=== PATIENT | female | born 1990 | race Caucasian/White ===

== ENCOUNTER 2018-10-25 22:54 | Emergency (ER) | payer MEDICAID ==
[~2018-10-25] VITALS: Ht 154.9 cm; Wt 59.1 kg
[2018-10-25] MEDS ORDERED: LEVE250T55 PO (23:25)
[2018-10-25] MEDS ORDERED: IBUPROFEN 100 MG/5 ML SUSPENSION UDCUP PO ONE (23:30)
[2018-10-25] MEDS ORDERED: PredniSONE 5 MG/5 ML SOLUTION UDCUP PO ONE (23:30)
[2018-10-25 23:56] VITALS: BP 123/68
== END 2018-10-26 00:03 | disposition home or self-care (01) ==
LOC: EMS 22:54 → EDBD 22:54 → EMS 10-26 00:03
DX: J20.9 Acute bronchitis, unspecified (principal); J03.90 Acute tonsillitis, unspecified
CPT/HCPCS: 99283; J7512

== ENCOUNTER 2020-01-08 11:27 | Emergency (ER) | payer MEDICAID ==
[~2020-01-08] VITALS: Ht 152.4 cm; Wt 52.3 kg
[~2020-01-08 11:27] MED LIST: LEVE250T55 PO
[2020-01-08] MEDS: ACETAMINOPHEN 500 MG TABLET PO ONE ×2 (13:00→13:28)
[2020-01-08] MEDS ORDERED: ACETAMINOPHEN 650 MG/20.3 ML SOLUTION UDCUP PO ONE (13:45)
[2020-01-08 14:32] LABS: RAPID GROUP A STREP NEGATIVE (NEGATIVE)
[2020-01-08 14:33] LABS: INFLUENZA TYPE A NEGATIVE FOR TYPE A (NEGATIVE); INFLUENZA TYPE B NEGATIVE FOR TYPE B (NEGATIVE)
[2020-01-08 15:03] VITALS: BP 110/68
== END 2020-01-08 15:07 | disposition home or self-care (01) ==
LOC: EMS 11:32
DX: B34.9 Viral infection, unspecified (principal); G40.909 Epilepsy, unspecified, not intractable, without status epilepticus
CPT/HCPCS: 87430; 87804

== ENCOUNTER 2021-09-20 15:41 | Inpatient (IN) | payer MEDICAID ==
[~2021-09-20] VITALS: Ht 160 cm; Wt 71.0 kg
[~2021-09-20 15:41] MED LIST changes: +LEVE250T4 PO; -LEVE250T55 PO
[2021-09-20] MEDS ORDERED: ONDANSETRON HCL 4 MG/2 ML VIAL IVP ONE (17:45)
[2021-09-20] MEDS ORDERED: SODIUM CHLORIDE 0.9% 1,000 ML IV ONE (17:45)
[2021-09-20] MEDS ORDERED: BARIUM SULFATE 0.1% SUSPENSION 450 ML BOTTLE PO ONE (17:45)
[2021-09-20 18:04] LABS: BASOPHILS % (AUTO) 0.7 % (0.0-2.0); EOSINOPHILS % (AUTO) 0.7 % (1.0-6.0); HEMATOCRIT 37.5 % (36-46); HEMOGLOBIN 12.5 g/dL (12.0-16.0); LYMPHOCYTES # (AUTO) 2.7 K/uL (1.0-4.8); LYMPHOCYTES % (AUTO) 27.3 % (22.0-44.0); MEAN CORPUSCULAR HEMOGLOBIN 26.3 pg (26.0-34.0); MEAN CORPUSCULAR HGB CONC 33.4 G/dL (31.0-37.0); MEAN CORPUSCULAR VOLUME 79 fL (80-100); MONOCYTES # (AUTO) 0.4 K/uL (0.1-1.0); MONOCYTES % (AUTO) 4.5 % (2.0-9.0); NEUTROPHILS # (AUTO) 6.5 K/uL (1.8-7.7); NEUTROPHILS % (AUTO) 66.8 % (40.0-70.0); PLATELET COUNT (AUTO) 359 K/uL (150-450); RED BLOOD CELL COUNT(AUTO) 4.77 MIL/uL (4.00-5.20); RED CELL DISTRIBUTION WIDTH 13.9 % (11.5-14.5)
[2021-09-20 18:14] LABS: ANION GAP 8 mmol/L (8-16); CALCIUM, TOTAL 9.3 mg/dL (8.8-10.5); CARBON DIOXIDE 28 mmol/L (22-29); CHLORIDE 105 mmol/L (98-107); CREATININE 0.95 mg/dL (0.60-1.30); GLOMERULAR FILTR. RATE CALC > 60 mL/min (>60); GLUCOSE,RANDOM 111 mg/dL (70-110); SODIUM SERUM 141 mmol/L (136-145); UREA NITROGEN, BLOOD 11 mg/dL (7-18)
[2021-09-20 18:18] LABS: ALANINE AMINOTRANSFERASE 16 U/L (12-78); ALBUMIN 3.8 g/dL (3.4-5.0); ALKALINE PHOSPHATASE 99 U/L (46-116); ASPARTATE AMINOTRANSFERASE 16 U/L (15-37); BILIRUBIN,TOTAL 0.2 mg/dL (0.1-1.0); LIPASE 162 U/L (73-393); TOTAL PROTEIN, SERUM 7.8 g/dL (6.4-8.2)
[2021-09-20] MEDS ORDERED: SODIUM CHLORIDE 0.9% 100 ML ONE (18:51)
[2021-09-20] MEDS ORDERED: IOHEXOL 350 MG/ML 100 ML VIAL ONE (18:52)
[2021-09-20] MEDS ORDERED: 0.9% SODIUM CHLORIDE 10 ML SYRINGE IVP PRN (20:45)
[2021-09-20] MEDS ORDERED: ONDANSETRON HCL 4 MG/2 ML VIAL IVP PRN (20:45)
[2021-09-20] MEDS ORDERED: ACETAMINOPHEN 325 MG TABLET PO PRN (20:45)
[2021-09-20] MEDS ORDERED: LevETIRAcetam 750 MG in DEXTROSE 5%-WATER 100 ML IV ONE (21:00)
[2021-09-20 21:15] LABS: COVID AG,FIA SOURCE NASOPHARYNGEAL
[2021-09-20] MEDS: RINGERS SOLUTION,LACTATED 1,000 ML IV SCH (21:48)
[2021-09-21] MEDS: RINGERS SOLUTION,LACTATED 1,000 ML IV SCH ×2 (07:54→17:09)
[2021-09-21] MEDS: LevETIRAcetam 750 MG in DEXTROSE 5%-WATER 100 ML IV SCH ×2 (08:25→20:45)
[2021-09-21] MEDS ORDERED: SODIUM CHLORIDE 0.9% 1,000 ML IV ONE (14:30)
[2021-09-21 16:44] VITALS: BP 161/77
[2021-09-21] MEDS ORDERED: ACETAMINOPHEN 325 MG TABLET PO PRN (17:00)
[2021-09-21 18:30] VITALS: BP 115/75
[2021-09-21] MEDS ORDERED: INFLUENZA VIRUS VACCINE QVS 2021-22 (6MO+)/PF 60 MCG/0.5 ML SYRINGE IM. ONE (19:15)
[2021-09-21 19:54] VITALS: BP 111/67
[2021-09-22 00:34] VITALS: BP 108/56
[2021-09-22] MEDS: RINGERS SOLUTION,LACTATED 1,000 ML IV SCH ×4 (04:51→23:30)
[2021-09-22 06:05] VITALS: BP_SYST 114; BP_SYST 14; BP_DIAS 64
[2021-09-22] MEDS ORDERED: RINGERS SOLUTION,LACTATED 1,000 ML IV SCH (06:15)
[2021-09-22] MEDS ORDERED: RINGERS SOLUTION,LACTATED 1,000 ML IV ONE (06:15)
[2021-09-22] MEDS ORDERED: ACETAMINOPHEN 500 MG TABLET PO PRN (09:45)
[2021-09-22] MEDS ORDERED: ONDANSETRON HCL 4 MG/2 ML VIAL IVP PRN (09:45)
[2021-09-22] MEDS ORDERED: HYDROCODONE/ACETAMINOPHEN 5-325 MG TABLET PO PRN (09:45)
[2021-09-22] MEDS ORDERED: IBUPROFEN 800 MG TABLET PO PRN (09:45)
[2021-09-22] MEDS ORDERED: HYDROmorphone 2 MG/ML VIAL ONE (10:03)
[2021-09-22] MEDS ORDERED: FentaNYL CITRATE PF 100 MCG/2 ML VIAL ONE (10:06)
[2021-09-22] MEDS ORDERED: HYDROmorphone 2 MG/ML VIAL IVP PRN (10:15)
[2021-09-22] MEDS ORDERED: FentaNYL CITRATE PF 100 MCG/2 ML VIAL IVP ONE (10:15)
[2021-09-22] MEDS ORDERED: SODIUM CHLORIDE 0.9% 1,000 ML ONE (10:52)
[2021-09-22] MEDS ORDERED: BUPIVACAINE HCL/PF 0.5% 30 ML VIAL ONE (10:53)
[2021-09-22] MEDS ORDERED: LIDOCAINE 2%/EPI 1:200,000/PF 20 ML VIAL ONE (10:53)
[2021-09-22] MEDS: LevETIRAcetam 750 MG in DEXTROSE 5%-WATER 100 ML IV SCH ×2 (11:01→21:04)
[2021-09-22] MEDS: MORPHINE SULFATE 2 MG/ML SYRINGE IVP PRN ×2 (11:28→19:06)
[2021-09-22 11:57] VITALS: BP 127/87
[2021-09-22 16:34] VITALS: BP 99/66
[2021-09-22] MEDS: HYPROMELLOSE 0.5% 15 ML OPHTHALMIC SOLUTION OU PRN (17:28)
[2021-09-22 20:50] VITALS: BP 95/58
[2021-09-22 21:02] LABS: APPEARANCE,URINE CLEAR (CLEAR); BILIRUBIN,URINE NEGATIVE (NEGATIVE); GLUCOSE, URINE (UA) 500 mg/dL (NEGATIVE); KETONES,URINE NEGATIVE (NEGATIVE); LEUKOCYTE ESTERASE ,URINE NEGATIVE (NEGATIVE); NITRATE,URINE NEGATIVE (NEGATIVE); OCCULT BLOOD,URINE NEGATIVE (NEGATIVE); PH,URINE 7.5 (5.0-8.0); PROTEIN,URINE NEGATIVE (NEGATIVE)
[2021-09-22 21:04] LABS: BACTERIA,URINE Rare /HPF (None Seen); RBC,URINE None Seen /HPF (0-2); WBC,URINE 0-2 /HPF (0-5)
[2021-09-22] MEDS ORDERED: SODIUM CHLORIDE 0.9% 500 ML IV ONE (21:05)
[2021-09-23] MEDS: HYPROMELLOSE 0.5% 15 ML OPHTHALMIC SOLUTION OU PRN (04:09)
[2021-09-23 04:18] VITALS: BP 117/61
[2021-09-23] MEDS ORDERED: FentaNYL CITRATE PF 100 MCG/2 ML VIAL IVP ONE (05:48)
[2021-09-23] MEDS ORDERED: KETOROLAC TROMETHAMINE 60 MG/2 ML VIAL IM ONE (05:48)
[2021-09-23] MEDS ORDERED: MIDAZOLAM HCL 2 MG/2 ML VIAL IVP ONE (05:48)
[2021-09-23] MEDS ORDERED: ROCURONIUM BROMIDE 10 MG/ML 5 ML VIAL IVP ONE (05:48)
[2021-09-23] MEDS ORDERED: DEXAMETHASONE SOD PHOS 4 MG/ML VIAL IVP ONE (05:48)
[2021-09-23] MEDS ORDERED: LIDOCAINE/PF 2% 5 ML SYRINGE IVP ONE (05:48)
[2021-09-23] MEDS ORDERED: PROPOFOL 1% 20 ML VIAL IVP ONE (05:48)
[2021-09-23] MEDS ORDERED: ONDANSETRON HCL 4 MG/2 ML VIAL IVP ONE (05:48)
[2021-09-23 05:54] LABS: BASOPHILS % (AUTO) 0.1 % (0.0-2.0); EOSINOPHILS % (AUTO) 0.1 % (1.0-6.0); HEMATOCRIT 34.7 % (36-46); HEMOGLOBIN 11.6 g/dL (12.0-16.0); LYMPHOCYTES % (AUTO) 18.7 % (22.0-44.0); MEAN CORPUSCULAR HEMOGLOBIN 26.5 pg (26.0-34.0); MEAN CORPUSCULAR HGB CONC 33.5 G/dL (31.0-37.0); MEAN CORPUSCULAR VOLUME 79 fL (80-100); MONOCYTES # (AUTO) 0.8 K/uL (0.1-1.0); NEUTROPHILS # (AUTO) 7.7 K/uL (1.8-7.7); NEUTROPHILS % (AUTO) 73.1 % (40.0-70.0); PLATELET COUNT (AUTO) 349 K/uL (150-450); RED BLOOD CELL COUNT(AUTO) 4.39 MIL/uL (4.00-5.20)
[2021-09-23 06:40] LABS: ANION GAP 8 mmol/L (8-16); CALCIUM, TOTAL 9.1 mg/dL (8.8-10.5); CARBON DIOXIDE 24 mmol/L (22-29); CHLORIDE 107 mmol/L (98-107); CREATININE 0.65 mg/dL (0.60-1.30); GLOMERULAR FILTR. RATE CALC > 60 mL/min (>60); GLUCOSE,RANDOM 134 mg/dL (70-110); POTASSIUM 3.9 mmol/L (3.5-5.1); SODIUM SERUM 139 mmol/L (136-145); UREA NITROGEN, BLOOD 9 mg/dL (7-18)
[2021-09-23 08:00] VITALS: BP 110/64
[2021-09-23] MEDS: LevETIRAcetam 750 MG in DEXTROSE 5%-WATER 100 ML IV SCH (09:49)
[2021-09-23] MEDS: RINGERS SOLUTION,LACTATED 1,000 ML IV SCH ×2 (09:50→10:46)
[2021-09-23] MEDS: MORPHINE SULFATE 2 MG/ML SYRINGE IVP PRN (09:51)
[2021-09-23 15:47] VITALS: BP 111/71
[2021-09-23 19:25] VITALS: BP 103/67
== END 2021-09-23 21:05 | disposition home health service (06) | DRG 263 ==
LOC: EMS 15:43 → 6N 09-21 15:15 → 6S 09-21 16:11
PROVIDERS: ADMIT Internal Medicine; ATTEND Internal Medicine
PROC: 0FT44ZZ Resection of Gallbladder, Percutaneous Endoscopic Approach (ICD-10-PCS; principal; 2021-09-22 08:45)
DX: K80.12 Calculus of gallbladder with acute and chronic cholecystitis without obstruction (principal); G40.909 Epilepsy, unspecified, not intractable, without status epilepticus; G80.9 Cerebral palsy, unspecified; K31.84 Gastroparesis; K62.5 Hemorrhage of anus and rectum; Z20.822 Contact with and (suspected) exposure to COVID-19
CPT/HCPCS: 74177; 76700; 80048; 80053; 81001; 82271; 83690; 84703; 85025; 87081; 88304; 99285; G0238; J0712; J1100; J1170; J1885; J2250; J2270; J2405; J2704; J3010; J3490; J7030; J7040; J7050; J7060; J7120; Q9967

== ENCOUNTER 2022-03-12 14:08 | Emergency (ER) | payer MEDICAID ==
[~2022-03-12] VITALS: Ht 154.9 cm; Wt 59.1 kg
[2022-03-12] MEDS ORDERED: SODIUM CHLORIDE 0.9% 1,000 ML IV ONE (14:30)
[2022-03-12 14:53] LABS: BASOPHILS % (AUTO) 0.6 % (0.0-2.0); EOSINOPHILS % (AUTO) 0.7 % (1.0-6.0); HEMATOCRIT 36.7 % (36-46); HEMOGLOBIN 12.5 g/dL (12.0-16.0); LYMPHOCYTES # (AUTO) 2.4 K/uL (1.0-4.8); LYMPHOCYTES % (AUTO) 28.6 % (22.0-44.0); MEAN CORPUSCULAR HEMOGLOBIN 26.5 pg (26.0-34.0); MEAN CORPUSCULAR HGB CONC 34.1 G/dL (31.0-37.0); MEAN CORPUSCULAR VOLUME 78 fL (80-100); MONOCYTES # (AUTO) 0.6 K/uL (0.1-1.0); MONOCYTES % (AUTO) 7.1 % (2.0-9.0); NEUTROPHILS # (AUTO) 5.2 K/uL (1.8-7.7); PLATELET COUNT (AUTO) 377 K/uL (150-450); RED BLOOD CELL COUNT(AUTO) 4.73 MIL/uL (4.00-5.20); RED CELL DISTRIBUTION WIDTH 13.8 % (11.5-14.5)
[2022-03-12 15:02] LABS: ANION GAP 8 mmol/L (8-16); CALCIUM, TOTAL 8.1 mg/dL (8.8-10.5); CARBON DIOXIDE 26 mmol/L (22-29); CHLORIDE 106 mmol/L (98-107); CREATININE 0.61 mg/dL (0.60-1.30); GLOMERULAR FILTR. RATE CALC > 60 mL/min (>60); GLUCOSE,RANDOM 113 mg/dL (70-110); POTASSIUM 4.1 mmol/L (3.5-5.1); SODIUM SERUM 140 mmol/L (136-145); UREA NITROGEN, BLOOD 13 mg/dL (7-18)
[2022-03-12 15:16] LABS: ALANINE AMINOTRANSFERASE 20 U/L (12-78); ALBUMIN 3.5 g/dL (3.4-5.0); ALKALINE PHOSPHATASE 104 U/L (46-116); ASPARTATE AMINOTRANSFERASE 16 U/L (15-37); BILIRUBIN,TOTAL 0.2 mg/dL (0.1-1.0); HCG,QUANTITATIVE < 1 mIU/mL (0-6); LIPASE 160 U/L (73-393); TOTAL PROTEIN, SERUM 7.4 g/dL (6.4-8.2)
[2022-03-12 16:25] LABS: APPEARANCE,URINE CLEAR (CLEAR); BILIRUBIN,URINE NEGATIVE (NEGATIVE); GLUCOSE, URINE (UA) NEGATIVE (NEGATIVE); KETONES,URINE NEGATIVE (NEGATIVE); LEUKOCYTE ESTERASE ,URINE NEGATIVE (NEGATIVE); NITRATE,URINE NEGATIVE (NEGATIVE); OCCULT BLOOD,URINE NEGATIVE (NEGATIVE); PROTEIN,URINE NEGATIVE (NEGATIVE); SPECIFIC GRAVITIY, URINE 1.007 (1.003-1.030); UROBILINOGEN,URINE <=1.0 mg/dL (<=1.0)
[2022-03-12] MEDS ORDERED: NIRM1TAB5 PO (17:08)
[2022-03-12] MEDS ORDERED: ONDA-104 PO (17:10)
[2022-03-12 18:48] VITALS: BP 100/70
== END 2022-03-12 19:45 | disposition home or self-care (01) ==
LOC: EMS 14:09
DX: U07.1 COVID-19 (principal); Z79.899 Other long term (current) drug therapy
CPT/HCPCS: 71045; 80053; 81003; 83690; 84484; 84702; 85025; 93005; 99285; 36415-L1; 36415-TC

== ENCOUNTER 2022-04-14 15:15 | Emergency (ER) | payer MEDICAID ==
[~2022-04-14] VITALS: Ht 152.4 cm; Wt 70.5 kg
[~2022-04-14 15:15] MED LIST changes: +NIRM1TAB5 PO; +ONDA-104 PO
[2022-04-14 16:03] LABS: BASOPHILS % (AUTO) 0.5 % (0.0-2.0); EOSINOPHILS % (AUTO) 0.7 % (1.0-6.0); HEMATOCRIT 37.6 % (36-46); HEMOGLOBIN 12.5 g/dL (12.0-16.0); LYMPHOCYTES # (AUTO) 2.1 K/uL (1.0-4.8); MEAN CORPUSCULAR HEMOGLOBIN 26.2 pg (26.0-34.0); MEAN CORPUSCULAR HGB CONC 33.3 G/dL (31.0-37.0); MEAN CORPUSCULAR VOLUME 79 fL (80-100); MONOCYTES # (AUTO) 0.6 K/uL (0.1-1.0); MONOCYTES % (AUTO) 6.4 % (2.0-9.0); NEUTROPHILS # (AUTO) 6.1 K/uL (1.8-7.7); NEUTROPHILS % (AUTO) 68.4 % (40.0-70.0); PLATELET COUNT (AUTO) 388 K/uL (150-450); RED BLOOD CELL COUNT(AUTO) 4.78 MIL/uL (4.00-5.20); RED CELL DISTRIBUTION WIDTH 13.7 % (11.5-14.5)
[2022-04-14 16:32] LABS: ANION GAP 10 mmol/L (8-16); CALCIUM, TOTAL 9.3 mg/dL (8.8-10.5); CARBON DIOXIDE 25 mmol/L (22-29); CHLORIDE 104 mmol/L (98-107); CREATININE 0.66 mg/dL (0.60-1.30); GLUCOSE,RANDOM 112 mg/dL (70-110); POTASSIUM 4.3 mmol/L (3.5-5.1); SODIUM SERUM 139 mmol/L (136-145); UREA NITROGEN, BLOOD 9 mg/dL (7-18)
[2022-04-14 16:38] LABS: ALANINE AMINOTRANSFERASE 23 U/L (12-78); ALBUMIN 3.7 g/dL (3.4-5.0); ALKALINE PHOSPHATASE 106 U/L (46-116); ASPARTATE AMINOTRANSFERASE 14 U/L (15-37); BILIRUBIN,TOTAL 0.2 mg/dL (0.1-1.0); TOTAL PROTEIN, SERUM 7.9 g/dL (6.4-8.2)
[2022-04-14 16:41] LABS: GLOMERULAR FILTR. RATE CALC > 60 mL/min (>60)
[2022-04-14] MEDS ORDERED: SERT-162 PO (18:01)
[2022-04-14] MEDS ORDERED: KETOROLAC TROMETHAMINE 30 MG/ML VIAL IM ONE (19:15)
[2022-04-14 19:40] VITALS: BP 114/59
== END 2022-04-14 21:43 | disposition home or self-care (01) ==
LOC: EMS 15:17
DX: F32.9 Major depressive disorder, single episode, unspecified (principal); Z79.899 Other long term (current) drug therapy
CPT/HCPCS: 36415; 80053; 85025; 96372; 99284; G0480; J1885

== ENCOUNTER 2023-01-29 18:00 | Emergency (ER) | payer MEDICAID, OTHER ==
[~2023-01-29] VITALS: Ht 162.6 cm; Wt 75.0 kg
[~2023-01-29 18:00] MED LIST changes: +SERT-162 PO
[2023-01-29 18:02] VITALS: BP 129/83
[2023-01-29] MEDS ORDERED: [UNRECOGNIZED DRUG - CODE] PO (18:04)
== END 2023-01-29 20:05 | disposition home or self-care (01) ==
LOC: EMS 18:07
DX: H61.22 Impacted cerumen, left ear (principal)
CPT/HCPCS: 99282; Z7502

== ENCOUNTER 2023-04-05 12:54 | Emergency (ER) | payer OTHER ==
[~2023-04-05] VITALS: Ht 154.9 cm; Wt 63.6 kg
[~2023-04-05 12:54] MED LIST changes: -NIRM1TAB5 PO; -ONDA-104 PO; -SERT-162 PO; +[UNRECOGNIZED DRUG - CODE] PO
[2023-04-05] MEDS ORDERED: SODIUM CHLORIDE 0.9% 1,900 ML IV ONE (13:15)
[2023-04-05] MEDS ORDERED: KETOROLAC TROMETHAMINE 30 MG/ML VIAL IVP ONE (13:15)
[2023-04-05] MEDS ORDERED: 0.9% SODIUM CHLORIDE 10 ML SYRINGE IVP PRN (13:15)
[2023-04-05] MEDS ORDERED: ACETAMINOPHEN 1000 MG/ISO-OSM 100 ML IV ONE (13:15)
[2023-04-05] MEDS ORDERED: LEVE500S10 PO (13:19)
[2023-04-05] MEDS ORDERED: IOHEXOL 350 MG/ML 100 ML VIAL ONE (13:27)
[2023-04-05] MEDS ORDERED: SODIUM CHLORIDE 0.9% 100 ML ONE (13:27)
[2023-04-05 13:55] LABS: HEMOGLOBIN 12.6 g/dL (12.0-16.0); MEAN CORPUSCULAR HEMOGLOBIN 26.4 pg (26.0-34.0); MEAN CORPUSCULAR HGB CONC 33.2 G/dL (31.0-37.0); MEAN CORPUSCULAR VOLUME 79 fL (80-100); PLATELET COUNT (AUTO) 359 K/uL (150-450); RED BLOOD CELL COUNT(AUTO) 4.78 MIL/uL (4.00-5.20); RED CELL DISTRIBUTION WIDTH 13.7 % (11.5-14.5)
[2023-04-05 13:57] LABS: COVID AG,FIA SOURCE NASOPHARYNGEAL
[2023-04-05 14:05] LABS: INR 1.1 (0.9-1.1); PROTHROMBIN TIME 11.1 SEC (9.4-11.6)
[2023-04-05 14:06] LABS: ANION GAP 11 mmol/L (8-16); CALCIUM, TOTAL 8.8 mg/dL (8.8-10.5); CARBON DIOXIDE 22 mmol/L (22-29); CHLORIDE 104 mmol/L (98-107); CREATININE 0.63 mg/dL (0.60-1.30); GLOMERULAR FILTR. RATE CALC > 60 mL/min (>60); GLUCOSE,RANDOM 95 mg/dL (70-110); POTASSIUM 3.9 mmol/L (3.5-5.1); SODIUM SERUM 137 mmol/L (136-145)
[2023-04-05 14:08] LABS: B-TYPE NATRIURETIC PEPTIDE 71 pg/mL (0-100)
[2023-04-05 14:21] LABS: ALANINE AMINOTRANSFERASE 27 U/L (12-78); ALBUMIN 3.9 g/dL (3.4-5.0); ALKALINE PHOSPHATASE 125 U/L (46-116); ASPARTATE AMINOTRANSFERASE 28 U/L (15-37); BILIRUBIN,TOTAL 0.2 mg/dL (0.1-1.0); CREATINE KINASE, TOTAL ONLY 55 U/L (26-192); HCG,QUANTITATIVE < 1 mIU/mL (0-6); LIPASE 81 U/L (73-393); TOTAL PROTEIN, SERUM 8.1 g/dL (6.4-8.2)
[2023-04-05 14:24] LABS: INFLUENZA TYPE A NEGATIVE FOR TYPE A (NEGATIVE); INFLUENZA TYPE B NEGATIVE FOR TYPE B (NEGATIVE)
[2023-04-05 14:28] LABS: LACTIC ACID 1.2 mmol/L (0.4-2.0)
[2023-04-05 14:56] LABS: BAND NEUTROPHILS % (MANUAL) 2 % (0-5); LYMPHOCYTES % (MANUAL) 5 % (22-44); MONOCYTES % (MANUAL) 4 % (2-9); SEGMENTED NEUTROPHILS % 89 % (40-70)
[2023-04-05 15:08] LABS: APPEARANCE,URINE CLEAR (CLEAR); BILIRUBIN,URINE NEGATIVE (NEGATIVE); GLUCOSE, URINE (UA) NEGATIVE (NEGATIVE); KETONES,URINE 80-100 mg/dL (NEGATIVE); LEUKOCYTE ESTERASE ,URINE NEGATIVE (NEGATIVE); NITRATE,URINE NEGATIVE (NEGATIVE); OCCULT BLOOD,URINE SMALL (NEGATIVE); PROTEIN,URINE TRACE mg/dL (NEGATIVE); SPECIFIC GRAVITIY, URINE 1.024 (1.003-1.030); UROBILINOGEN,URINE <=1.0 mg/dL (<=1.0)
[2023-04-05 15:47] LABS: BACTERIA,URINE None Seen /HPF (None Seen); RBC,URINE None Seen /HPF (0-2); WBC,URINE None Seen /HPF (0-5)
[2023-04-05 19:36] VITALS: BP 106/72; PULSE 98; RESP 18; TEMP 100.3
[2023-04-06] MEDS ORDERED: PROM6.2514 PO (15:54)
== END 2023-04-05 20:27 | disposition home or self-care (01) ==
LOC: EMS 12:56
DX: U07.1 COVID-19 (principal); G80.9 Cerebral palsy, unspecified; Z20.822 Contact with and (suspected) exposure to COVID-19
CPT/HCPCS: 99285; 74177; 96365; 71045; 96375; 87426; 80053; 81001; 82550; 83605; 83690; 83880; 84484; 84702; 84703; 85025; 85610; 87040; 87205; 87804; 36415; 87077; 93005; 84145; J1885; Q9967; J7030; J7050; J0131

== ENCOUNTER 2023-04-06 15:08 | Emergency (ER) | payer OTHER ==
[~2023-04-06] VITALS: Ht 154.9 cm; Wt 68.0 kg
[~2023-04-06 15:08] MED LIST changes: -LEVE250T4 PO; +LEVE500S10 PO; -[UNRECOGNIZED DRUG - CODE] PO
[2023-04-06 15:25] VITALS: TEMP 99.7
[2023-04-06] MEDS ORDERED: ACETAMINOPHEN 500 MG TABLET PO ONE (15:30)
[2023-04-06] MEDS ORDERED: ACETAMINOPHEN 160 MG/5 ML SUSPENSION UDCUP PO ONE (15:45)
[2023-04-06] MEDS ORDERED: PROM6.2514 PO (15:54)
[2023-04-06 17:58] VITALS: BP 102/71; PULSE 81; RESP 18
== END 2023-04-06 18:14 | disposition home or self-care (01) ==
LOC: EMS 15:11
DX: U07.1 COVID-19 (principal); G40.909 Epilepsy, unspecified, not intractable, without status epilepticus; G80.9 Cerebral palsy, unspecified
CPT/HCPCS: 99283

== ENCOUNTER 2023-07-05 19:57 | Emergency (ER) | payer OTHER ==
[~2023-07-05] VITALS: Ht 154.9 cm; Wt 63.6 kg
[~2023-07-05 19:57] MED LIST changes: +PROM6.2514 PO
[2023-07-05 21:23] VITALS: TEMP 98.6
[2023-07-05 22:01] LABS: BASOPHILS % (AUTO) 0.7 % (0.0-2.0); EOSINOPHILS % (AUTO) 0.6 % (1.0-6.0); HEMATOCRIT 38.3 % (36-46); HEMOGLOBIN 12.8 g/dL (12.0-16.0); LYMPHOCYTES # (AUTO) 2.1 K/uL (1.0-4.8); LYMPHOCYTES % (AUTO) 36.9 % (22.0-44.0); MEAN CORPUSCULAR HEMOGLOBIN 26.5 pg (26.0-34.0); MEAN CORPUSCULAR HGB CONC 33.3 G/dL (31.0-37.0); MEAN CORPUSCULAR VOLUME 80 fL (80-100); MONOCYTES # (AUTO) 0.6 K/uL (0.1-1.0); MONOCYTES % (AUTO) 10.9 % (2.0-9.0); NEUTROPHILS # (AUTO) 2.9 K/uL (1.8-7.7); NEUTROPHILS % (AUTO) 50.9 % (40.0-70.0); PLATELET COUNT (AUTO) 405 K/uL (150-450); RED BLOOD CELL COUNT(AUTO) 4.81 MIL/uL (4.00-5.20); RED CELL DISTRIBUTION WIDTH 13.8 % (11.5-14.5); WHITE BLOOD COUNT (AUTO) 5.6 K/uL (4.5-11.0)
[2023-07-05 22:25] LABS: ANION GAP 8 mmol/L (8-16); CALCIUM, TOTAL 8.5 mg/dL (8.8-10.5); CARBON DIOXIDE 26 mmol/L (22-29); CHLORIDE 102 mmol/L (98-107); CREATININE 0.59 mg/dL (0.60-1.30); GLOMERULAR FILTR. RATE CALC > 60 mL/min (>60); GLUCOSE,RANDOM 108 mg/dL (70-110); POTASSIUM 3.8 mmol/L (3.5-5.1); SODIUM SERUM 136 mmol/L (136-145); UREA NITROGEN, BLOOD 10 mg/dL (7-18)
[2023-07-05 22:32] LABS: ALANINE AMINOTRANSFERASE 19 U/L (12-78); ALBUMIN 3.5 g/dL (3.4-5.0); ALKALINE PHOSPHATASE 119 U/L (46-116); ASPARTATE AMINOTRANSFERASE 20 U/L (15-37); BILIRUBIN,TOTAL 0.2 mg/dL (0.1-1.0); TOTAL PROTEIN, SERUM 7.4 g/dL (6.4-8.2)
[2023-07-05 22:47] LABS: COVID AG,FIA SOURCE NASAL SWAB
[2023-07-05 23:13] LABS: SARS-COV2 (COVID) ANTIGEN,FIA Negative (Negative)
[2023-07-05 23:14] LABS: INFLUENZA TYPE A NEGATIVE FOR TYPE A (NEGATIVE); INFLUENZA TYPE B NEGATIVE FOR TYPE B (NEGATIVE)
[2023-07-06 02:07] VITALS: BP 102/76; PULSE 88; RESP 16
== END 2023-07-06 02:10 | disposition home or self-care (01) ==
LOC: EMS 19:58
DX: J06.9 Acute upper respiratory infection, unspecified (principal); G80.9 Cerebral palsy, unspecified; Z20.822 Contact with and (suspected) exposure to COVID-19
CPT/HCPCS: 71045; 80053; 84703; 85025; 87804; 99284; 36415-L1; 36415-TC

== ENCOUNTER 2023-11-11 14:42 | Emergency (ER) | payer OTHER ==
[~2023-11-11] VITALS: Ht 154.9 cm; Wt 62.7 kg
[~2023-11-11 14:42] MED LIST changes: +PROM5L PO; -PROM6.2514 PO
[2023-11-11 14:45] VITALS: TEMP 98.6
[2023-11-11] MEDS ORDERED: BACITRACIN 28 GM OINTMENT TP ONE (15:30)
[2023-11-11] MEDS ORDERED: CEPH-558 PO (16:01)
[2023-11-11 16:11] VITALS: BP 136/84; PULSE 88; RESP 16
== END 2023-11-11 16:14 | disposition home or self-care (01) ==
LOC: EMS 14:45
DX: S91.202A Unspecified open wound of left great toe with damage to nail, initial encounter (principal); X58.XXXA Exposure to other specified factors, initial encounter; Y93.89 Activity, other specified; Y92.89 Other specified places as the place of occurrence of the external cause; Y99.8 Other external cause status
CPT/HCPCS: 99283